=== PATIENT | female | born 1990 | race Caucasian/White ===

== ENCOUNTER 2019-08-25 20:40 | Emergency (ER) | payer SELFPAY ==
[2019-08-25] MEDS ORDERED: Lidocaine 1% w/Epinephrine 1:100K 20 ML VIAL ONE (21:07)
[2019-08-25] MEDS ORDERED: Adacel (T-DAP) 0.5 ML SYRINGE ONE (21:27)
[2019-08-25] MEDS ORDERED: HYDROcodone/Acetaminophen 10/325 mg Tablet ONE (21:27)
[2019-08-25] MEDS ORDERED: traMADol HCl 50 MG TAB ONE (21:29)
== END 2019-08-25 22:20 | disposition home or self-care (01) ==
LOC: ERS 20:40
DX: L02.412 Cutaneous abscess of left axilla (principal); E11.9 Type 2 diabetes mellitus without complications; E78.5 Hyperlipidemia, unspecified; I10 Essential (primary) hypertension; F17.210 Nicotine dependence, cigarettes, uncomplicated; Z79.84 Long term (current) use of oral hypoglycemic drugs; Z79.899 Other long term (current) drug therapy
CPT/HCPCS: 10060; 90471; 90715